=== PATIENT | male | born 1975 | race American Indian/Alaskan Native ===

== ENCOUNTER 2018-03-18 08:55 | Emergency (ER) | payer MEDICAID, OTHER ==
[2018-03-18 09:03] VITALS: BMI 24.0
[2018-03-18 09:14] VITALS: TEMP 98.3; O2SAT 100
--- NOTE | 2018-03-18 10:22 | ED PDOC ---
Arrival/HPI - General Chief Complaint: Upper Extremity Problem/Injury Time Seen by Provider: 03/18/18 09:00 Historian: Patient - History of Present Illness Narrative History of Present Illness (Text): 03/18/18 10:19 42 year old male, whose past medical history includes asthma, presents to the emergency department complaining of left arm/ shoulder pain, since this morning. Patient states he woke up this morning in a lot of pain and struggles when trying to lift his left arm. He reports that he took aspirin powder to treat the pain, but saw no improvement which prompted his visit to the emergency department for further evaluation. Patient denies any injury to the area, unusual activities, fevers, chills, headache, dizziness, chest pain, shortness of breath, dyspnea on exertion, cough, abdominal pain, nausea, vomiting, di arrhea, back pain, neck pain, or any other complaint. Time/Duration: 4-6 hours Symptom Course: Unchanged Activities at Onset: Light Context: Home Past Medical History - Provider Review Nursing Documentation Reviewed: Yes - Cardiac Hx Cardiac Disorders: No - Pulmonary Hx Asthma: Yes - HEENT Hx HEENT Disorder: No - Renal Hx Renal Disorder: No - Endocrine/Metabolic Hx Endocrine Disorders: No - Hematological/Oncological Hx Blood Disorders: No - Integumentary Hx Dermatological Disorder: No - Musculoskeletal/Rheumatological Hx Musculoskeletal Disorders: No - Gastrointestinal Hx Gastrointestinal Disorders: No - Genitourinary/Gynecological Hx Genitourinary Disorders: No - Psychiatric Hx Psychophysiologic Disorder: No Hx Substance Use: No - Anesthesia Hx Anesthesia: No Family/Social History - Physician Review Nursing Documentation Reviewed: Yes Family/Social History: No Known Family HX Smoking Status: Never Smoked Hx Alcohol Use: Yes Frequency of alcohol use: Socially Hx Substance Use: No Allergies/Home Meds Allergies/Adverse Reactions: Allergies No Known Allergies Allergy (Verified 03/18/18 10:18) Review of Systems - Physician Review All systems were reviewed & negative as marked: Yes - Review of Systems Constitutional: absent: Fevers Cardiovascular: absent: Chest Pain Physical Exam - Physical Exam Narrative Physical Exam (Text): 03/18/18 10:20 Constitutional: No acute distress. Head: Normocephalic. Atraumatic. Eyes: PERRL. ENT: Moist mucous membranes. Neck: Supple. Cardiovascular: Regular rate. Chest: No tenderness. Respiratory: Clear to auscultation bilaterally. GI: Soft. Nontender. Nondistended. Back: No CVA tenderness. Musculoskeletal: No tenderness over AC joint secondary to pain. Able to range 30 degrees with left arm. Tenderness to shoulder. no deformity. Skin: No rash. Neurologic: Alert, no focal deficit. Vital Signs Reviewed: Yes Vital Signs Temp Pulse Resp BP Pulse Ox 03/18/18 09:03 98.3 F 88 16 141/92 H 100 03/18/18 08:56 98.3 F 92 H 16 141/92 H 100 Temperature: Afebrile Blood Pressure: Hypertensive Pulse: Tachycardic Respiratory Rate: Normal Appearance: Positive for: Well-Appearing, Non-Toxic, Comfortable Pain Distress: None Mental Status: Positive for: Alert and Oriented X 3 Medical Decision Making ED Course and Treatment: 03/18/18 10:22 Impression: 42 year old male who presents to the emergency department complaining of left shoulder/ arm pain. Differential Diagnosis included but are not limited to: Tendinitis Bursitis r/o fracture or dislocation Plan: -- Left shoulder X-ray -- Reassess and disposition Progress Notes: 03/18/18 11:36 Left Shoulder Xray reviewed, shows: IMPRESSION: Normal radiographs of the left shoulder. Sling provided. Discharged home, follow up ortho, return to emergency department for fever, inability to move joint, worsening pain, or any other problem. - Scribe Statement The provider has reviewed the documentation as recorded by the Scribe Tiara Ribeiro Provider Scribe Attestation: All medical record entries made by the Scribe were at my direction and personally dictated by me. I have reviewed the chart and agree that the record accurately reflects my personal performance of the history, physical exam, medical decision making, and the department course for this patient. I have also personally directed, reviewed, and agree with the discharge instructions and disposition. Disposition/Present on Arrival - Present on Arrival Any Indicators Present on Arrival: No History of DVT/PE: No History of Uncontrolled Diabetes: No Urinary Catheter: No History of Decub. Ulcer: No History Surgical Site Infection Following: None - Disposition Have Diagnosis and Disposition been Completed?: Yes Diagnosis: Shoulder pain Disposition: HOME/ ROUTINE Disposition Time: 11:21 Patient Plan: Discharge Condition: STABLE Discharge Instructions (ExitCare): Bursitis, Shoulder Pain (DC) Prescriptions: Famotidine [Pepcid] 1 tab PO BID #14 tab Ibuprofen [Motrin] 600 mg PO Q6 #25 tab Referrals: Shahab Mc MD [Staff Provider] - Follow up with primary Forms: [employer] ([employer])
[2018-03-18 11:10] VITALS: BP 138/85; PULSE 89; RESP 18
--- NOTE | 2018-03-18 11:17 | RAD ---
Date of service: 03/18/2018 PROCEDURE: Radiographs of the Left Shoulder HISTORY: shoulder pain COMPARISON: No prior. FINDINGS: BONES: Normal. No fracture. JOINTS: Normal. Glenohumeral and acromioclavicular joints preserved. No osteoarthritis. SOFT TISSUES: Normal. OTHER FINDINGS: None. IMPRESSION: Normal radiographs of the left shoulder.
== END 2018-03-18 11:35 | disposition home or self-care (01) ==
LOC: MERGE 08:55 → ED 08:55
DX: M25.512 Pain in left shoulder (principal)